=== PATIENT | male | born 2000 | race Hispanic/Latino ===

== ENCOUNTER 2023-05-11 13:58 | Emergency (ER) | payer OTHER ==
[~2023-05-11] VITALS: Ht 172.7 cm; Wt 74.0 kg
[2023-05-11] MEDS ORDERED: CEPHALEXIN 500 MG CAP PO ONE (16:55)
[2023-05-11] MEDS ORDERED: CEPH500C PO (17:00)
[2023-05-11 17:05] VITALS: BP 137/76; TEMP 98; O2SAT 97
== END 2023-05-11 17:07 | disposition home or self-care (01) ==
LOC: M ED 13:58
DX: L08.9 Local infection of the skin and subcutaneous tissue, unspecified (principal); Z79.2 Long term (current) use of antibiotics